=== PATIENT | female | born 1960 | race Caucasian/White ===

== ENCOUNTER → 2018-01-09 | Outpatient (CLI) | DX: Z01.812 Encounter for preprocedural laboratory examination (principal); R19.09 Other intra-abdominal and pelvic swelling, mass and lump ==

== ENCOUNTER 2018-01-16 08:07 | Observation (INO) | payer MEDICARE, BC ==
[2018-01-15] MEDS: BUDESONIDE-FORMOTEROL 160/4.5 MCG INHALER INH SCH (21:00)
[~2018-01-16] VITALS: Ht 160 cm; Wt 93.8 kg
[~2018-01-16 08:07] MED LIST: ADVA250A INH; ALBU0.08 NEB; CLAR5TAB13 PO; GABA100C4 PO; OXYC1TAB63 PO; TRIA0.5O TOPICAL
[2018-01-16] MEDS ORDERED: POVIDONE IODINE 5% (ANTISEPSIS KIT) 4 APPLICATIONS EACH NARE PRN (08:45)
[2018-01-16] MEDS ORDERED: SODIUM CHLORID 0.9% 500 ML IV PRN (08:45)
[2018-01-16] MEDS ORDERED: LACTATED RINGER'S 1000 ML IV PRN (08:45)
[2018-01-16] MEDS ORDERED: HEPARIN SODIUM - SQ 10,000 UNITS/ML VIAL SQ SCH (08:45)
[2018-01-16] MEDS ORDERED: CHLORHEXIDINE GLUCONATE 2 % 1 PACK (2 CLOTHS) TOPICAL PRN (08:45)
[2018-01-16] MEDS ORDERED: METOPROLOL TARTRATE 25 MG TAB PO PRN (08:45)
[2018-01-16] MEDS ORDERED: ACETAMINOPHEN 1000 MG/100 ML 100 ML IV ONE (11:08)
[2018-01-16] MEDS ORDERED: SUGAMMADEX SODIUM 200 MG/2 ML VIAL IV PUSH ONE (11:08)
[2018-01-16] MEDS: ceFAZolin 2 GM/DEX PREMIX 50 ML IV SCH ×2 (11:28→12:54)
[2018-01-16] MEDS ORDERED: ROCURONIUM INJ 50 MG/5 ML SYRINGE IV PUSH ONE (12:00)
[2018-01-16] MEDS ORDERED: GLYCOPYRROLATE 1 MG/5 ML SYRINGE IV PUSH ONE (12:00)
[2018-01-16] MEDS ORDERED: LIDOCAINE HCL 1% PF 5 ML SYRINGE OTHER ONE (12:00)
[2018-01-16] MEDS ORDERED: NEOSTIGMINE 5 MG/5 ML SYRINGE IV PUSH ONE (12:00)
[2018-01-16] MEDS ORDERED: LACTATED RINGER'S 1000 ML INJ 1,000 ML IV ONE (12:00)
[2018-01-16] MEDS ORDERED: ONDANSETRON HCL 4 MG/2 ML VIAL IV PUSH ONE (12:00)
[2018-01-16] MEDS ORDERED: PROPOFOL 200 MG/20 ML AMP IV ONE (12:00)
[2018-01-16] MEDS ORDERED: VECURONIUM BROMIDE 20 MG VIAL IV ONE (12:00)
[2018-01-16] MEDS ORDERED: LIDOCAINE 1%/EPINEPHrine 1:100,000 SOLN 20 ML VIAL INFIL ONE (13:47)
[2018-01-16] MEDS ORDERED: ONDANSETRON ODT 4 MG TAB PO PRN (14:00)
[2018-01-16] MEDS ORDERED: SODIUM CHLORIDE 0.9% FLUSH 10 ML FLUSH IV FLUSH PRN (14:00)
[2018-01-16] MEDS ORDERED: oxyCODONE/ACETAMINOPHEN 5 MG/325 MG TAB PO PRN ×2 (14:00)
[2018-01-16] MEDS ORDERED: LORazepam 0.5 MG TAB PO PRN (14:00)
[2018-01-16] MEDS ORDERED: diphenhydrAMINE HCL 25 MG CAP PO PRN (14:00)
[2018-01-16] MEDS ORDERED: MIDAZOLAM HCL 2 MG/2 ML VIAL ONE (14:29)
[2018-01-16] MEDS ORDERED: DO NOT ADM ANY ANTICOAGULANT DRUGS PRN (14:30)
[2018-01-16] MEDS ORDERED: *morphine SULFATE 8 MG/ML PERIprocedure ONLY ONE (14:35)
[2018-01-16] MEDS ORDERED: *morphine SULFATE 10 MG/ML PERIprocedure ONLY ONE (14:51)
[2018-01-16] MEDS: D5-1/2 NS + KCL 20 MEQ INJ 1,000 ML IV SCH (15:00)
[2018-01-16] MEDS ORDERED: PILL SPLITTER OTHER PRN (15:30)
[2018-01-16] MEDS: KETOROLAC TROMETHAMINE 30 MG/ML (IVP) VIAL IVP SCH ×2 (15:40→21:40)
[2018-01-16 16:26] VITALS: BP 133/79; PULSE 94; RESP 18; TEMP 97.6; O2SAT 97
[2018-01-16] MEDS: GABAPENTIN 100 MG CAP PO SCH (18:00)
[2018-01-16] MEDS: SODIUM CHLORIDE 0.9% FLUSH 10 ML FLUSH IV FLUSH SCH (21:00)
[2018-01-16 21:35] VITALS: BP 138/84; PULSE 82; RESP 20; TEMP 98; O2SAT 96
[2018-01-16] MEDS: RESP: ALBUTEROL 1.25 MG/3 ML NEB (SCH) NEB (22:22)
[2018-01-17] VITALS: BP 110/74; PULSE 82; RESP 20; TEMP 98.6; O2SAT 98
[2018-01-17] MEDS: D5-1/2 NS + KCL 20 MEQ INJ 1,000 ML IV SCH ×2 (00:41→08:05)
[2018-01-17] MEDS: KETOROLAC TROMETHAMINE 30 MG/ML (IVP) VIAL IVP SCH ×2 (00:41→08:03)
[2018-01-17] MEDS: RESP: ALBUTEROL 1.25 MG/3 ML NEB (SCH) NEB ×2 (03:09→08:56)
[2018-01-17 04:05] VITALS: BP 122/56; PULSE 74; RESP 18; TEMP 98.6; O2SAT 95
[2018-01-17 06:52] LABS: AUTOMATED NEUTROPHIL # 8.1 TH/MM3 (1.8-7.7); BASOPHIL % 0.4 % (0.0-2.0); EOSINOPHIL # 0.1 TH/MM3 (0-0.4); EOSINOPHIL % 0.8 % (0.0-4.0); HEMATOCRIT 33.6 % (35.0-46.0); HEMOGLOBIN 10.8 GM/DL (11.6-15.3); LYMPH % 16.9 % (9.0-44.0); LYMPHOCYTE # 1.8 TH/MM3 (1.0-4.8); MEAN CELL VOLUME 79.9 FL (80.0-100.0); MEAN CORPUSCULAR HEMOGLOBIN 25.7 PG (27.0-34.0); MEAN CORPUSCULAR HGB CONC 32.2 % (32.0-36.0); MEAN PLATELET VOLUME 10.7 FL (7.0-11.0); MONOCYTE # 0.8 TH/MM3 (0-0.9); NEUT % 74.9 % (16.0-70.0); PLATELET COUNT 180 TH/MM3 (150-450); RED CELL DISTRIBUTION WIDTH 14.1 % (11.6-17.2); WHITE BLOOD COUNT 10.8 TH/MM3 (4.0-11.0)
--- NOTE | 2018-01-17 07:23 | EKG ---
Date Performed: 01/16/2018 Time Performed: 09:52:37 PTAGE: 58 years EKG: Sinus rhythm WITH MARKED SINUS ARRHYTHMIA ANTEROSEPTAL MYOCARDIAL INFARCTION , OF INDETERMINATE AGE ABNORMAL ECG NO PREVIOUS TRACING DOCTOR: Jessy Knight Interpretating Date/Time 01/17/2018 07:20:11
[2018-01-17 07:25] LABS: BICARBONATE 25.3 MEQ/L (21.0-32.0); CALCIUM 8.2 MG/DL (8.5-10.1); CREATININE 0.64 MG/DL (0.50-1.00)
[2018-01-17] MEDS ORDERED: OXYC1TAB63 PO (07:54)
[2018-01-17 08:00] VITALS: BP 115/63; PULSE 61; RESP 18; TEMP 97
[2018-01-17] MEDS: GABAPENTIN 100 MG CAP PO SCH (08:03)
[2018-01-17] MEDS: BUDESONIDE-FORMOTEROL 160/4.5 MCG INHALER INH SCH (08:04)
[2018-01-17] MEDS: SODIUM CHLORIDE 0.9% FLUSH 10 ML FLUSH IV FLUSH SCH (08:05)
[2018-01-17] MEDS ORDERED: NON-FORMULARY DRUG (Fluticasone-Salmeterol Inh (Advair Diskus Inh) 1 PUFF) INH SCH (09:00)
[2018-01-17] MEDS ORDERED: LORATADINE 10 MG TAB PO SCH (09:00)
--- NOTE | 2018-01-17 09:08 | MP ---
cc: Bonny Licona MD, Carhine MD Mathura,Brian GARCIA DATE OF OPERATION: 01/16/2018 PREOPERATIVE DIAGNOSIS: Complex right ovarian mass, status post prior hysterectomy. POSTOPERATIVE DIAGNOSIS: Complex right ovarian mass, status post prior hysterectomy. PROCEDURE PERFORMED: Robotic-assisted laparoscopic bilateral salpingo-oophorectomy (with resection of a right ovarian mass). SURGEON: Bonny Licona MD MEDICAL CODING MANAGER: [place] psychological assistant. ANESTHESIA: General endotracheal anesthesia. ESTIMATED BLOOD LOSS: 75 mL. IV FLUIDS: 1000 mL. URINE OUTPUT: 300 mL. HISTORY: A 58-year-old female with intermittent pelvic pain, found on exam and imaging to have a complex right ovarian mass between 5 and 6 cm. She has had a previous hysterectomy for benign indications. She was counseled regarding options. She was very much in favor of definitive surgery. She is seen again in the preop holding area with her . Findings are again reviewed. Plan of care was discussed. Questions were asked and answered. She expressed a good understanding and wished to move forward with surgery. FINDINGS: In the peritoneal cavity, there were no significant adhesions. The uterus and cervix were surgically absent. There were no peritoneal implants nodularities or masses. There was no appreciable pelvic or periaortic adenopathy. The left tube and ovary appeared normal, although was somewhat scarred to the left pelvic sidewall. The right ovary appeared abnormal solid 5-6 cm, was quite mobile raising the possibility of intermittent torsion as an underlying contributor to her pain. 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 No evidence of malignancy on frozen section analysis. PROCEDURE: She is taken to the operating room, placed in the dorsal lithotomy position after general endotracheal anesthesia was administered. A timeout was undertaken. She was identified by site recognition and hospital ID bracelet and the proposed procedure was reviewed and confirmed. She was carefully positioned in padded Brian stirrups. Her arms were padded and secured to the sides. She was further secured to the operating table with egg crate padding and tape in a crossed over the shoulder fashion. All sites noted to be properly aligned with no malalignments or pressure points. She was prepped and draped in sterile fashion. Arthur catheter placed in the bladder. An orogastric tube was placed in the stomach on suction and we completed draping in anticipation of laparoscopy. With manual elevation of the abdominal wall, a 5 mm cannula was introduced into the left upper quadrant. Carbon dioxide gas was insufflated and an atraumatic entry was confirmed. A 12 mm cannula placed in the midline above the umbilicus, 8 mm cannula placed in the right upper quadrant and the left lateral quadrant and the original 5 mm cannula exchanged for an 8 mm cannula. She was placed in Trendelenburg position. Peritoneal washings were obtained for cytology. The anatomy was reviewed with findings as described above. The small bowel was folded back on its mesenteric root. The robotic system was brought into the operative field and attached in the usual fashion. Monopolar scissors, fenestrated bipolar forceps and ProGrasp manipulators were placed in arm number 1, 2, and 3 respectively and I took my place at the surgeon's console. Right retroperitoneal dissection was carried out. The right ureter was identified. The infundibulopelvic ligament was isolated as the intervening peritoneum was opened. The gonadal vessels were elevated as the ureter was dissected and retracted posteriorly. The infundibulopelvic ligament was dissected to the level of the pelvic brim where it was cauterized and transected. Dissection was carried out distally to free adhesions to the adnexa until the residual utero-ovarian ligament was isolated, which was then cauterized and transected, thereby removing the right tube and ovary and placed in the cul-de-sac for later retrieval. Attention was directed toward the left side where left retroperitoneal dissection was carried out. Some time was spent taking down adhesions and freeing the adnexa which was partially retroperitonealized and partially adherent to the pericolonic mesentery. Further dissection of retroperitoneum allow identification of the left ureter. The left infundibulopelvic ligament was isolated. The intervening peritoneum was opened. The ureter was further freed and retracted posteriorly as the gonadal vessels were elevated and dissected to the level of the pelvic brim where the gonadal vessels were cauterized and transected. Dissection was carried out distally to free the adhesions until the residual utero-ovarian ligament was isolated, which was then cauterized and transected, thereby removing the left tube and ovary placed in the cul-de-sac for later retrieval. Sites were inspected and noted to be completely hemostatic. Good peristalsis of ureters bilaterally. Overall, benign appearance. No other abnormality, so pending pathology, it was felt that all surgical objectives had been completed. Accordingly, the robotic instruments were removed. The robotic system was disengaged from the operative field. I reentered the bedside under sterile condition. Sharp dissection was used to extend the fascial incision below the 12 mm skin incision and a 12 cm Endo Catch bag was used to capture both tubes and ovaries, which were brought to the abdominal wall through this incision. The left tube and ovary were easily retracted. The right solid ovarian mass needed to be reduced to deliver, so it was cut into fragments still contained within the bag until the sides were reduced enough to deliver the rest of the specimen, captured within the Endo Catch bag. The central fascial defect was closed with a series of interrupted 0 Vicryl sutures using fascia closure needle apparatus. There was some mild bleeding noted along this incision, but when the sutures were tied securely, it rendered the fascia completely airtight, well supported and completely hemostatic. The abdomen was irrigated and the blood was removed. All sites inspected, noted to be hemostatic. There were no remaining foreign objects in the peritoneal cavity. Preliminary counts were correct. The remaining cannulas were withdrawn, carbon dioxide gas was removed. 3-0 Vicryl subcutaneous, 3-0 Vicryl subcuticular and Steri-Strips were used to close these incisions. Pelvic exam confirmed there were no remaining foreign objects in the vagina. Final counts were correct. She was returned to dorsal supine position and was pending reversal of anesthesia when I left the operating room to precede her to the postanesthesia care unit. MD DEMIAN Cannon/GENA , 08:07 AM , 09:06 AM
--- NOTE | 2018-01-17 09:53 | MD ---
cc: Bonny Licona MD, Carhine MD Mathura,Brian GARCIA DATE OF DISCHARGE: 01/17/2018 PROCEDURE: 01/16/2018, Robotic-assisted laparoscopic bilateral salpingo-oophorectomy (with resection of right ovarian mass). HOSPITAL COURSE: She did well in the early postoperative period. She remained hemodynamically stable, tolerating oral intake. Arthur catheter out pending voiding. Ins and outs 1640/2525. Labs this morning show an H and H of 10.8 and 33.6. Electrolytes, potassium 3.8, BUN and creatinine 6 and 0.64. PHYSICAL EXAMINATION: VITAL SIGNS: She is afebrile, pulse 82-94, respirations 14-20, blood pressure 110 to 138/56 to 84, O2 saturations greater than or equal to 95%. GENERAL: Alert, oriented. LUNGS: Clear. CARDIOVASCULAR: Regular rate and rhythm. ABDOMEN: Soft. Incision is clean and dry. EXTREMITIES: Nontender. ASSESSMENT: Postoperative day number 1, doing well in the early postoperative period. Steps taken at surgery, preliminary pathology reviewed. Activities and restrictions discussed. Questions were asked and answered. She expressed a good understanding. PLAN: I anticipate she will meet criteria for discharge to home today. She is to resume prior medications. She will have a prescription for Percocet. She is to call our office to ensure she has a followup scheduled in 2 weeks or to contact us should she have any questions or problems between now and the time of scheduled followup. Bonny Licona MD KLM/GENA , 07:58 AM , 09:52 AM
== END 2018-01-17 10:34 | disposition home or self-care (01) ==
LOC: HSDC 08:07 → HSDI 14:03 → HCIN 16:05
PROVIDERS: ADMIT Obstetrics & Gynecology Gynecologic Oncology; ATTEND Obstetrics & Gynecology Gynecologic Oncology
DX: N83.9 Noninflammatory disorder of ovary, fallopian tube and broad ligament, unspecified (principal); R10.2 Pelvic and perineal pain; R94.31 Abnormal electrocardiogram [ECG] [EKG]; N73.6 Female pelvic peritoneal adhesions (postinfective)
CPT/HCPCS: 00840; 58661; 80048; 85025; 88112; 88305; 88307; 88331; 88341; 88342; 93005; 94640; 94664; 96374; 96376; G0378; J0131; J0690; J1644; J1885; J2250; J2270; J2405; J2710; J3010; J3480; J7120; J7613